=== PATIENT | female | born 1995 | race Caucasian/White ===

== ENCOUNTER 2020-07-31 14:58 | Emergency (ER) | payer MEDICAID, SELFPAY ==
[2020-07-31 14:59] VITALS: BP 102/65; PULSE 81; RESP 16; TEMP 36.6; O2SAT 99; BMI 21.1
--- NOTE | 2020-07-31 15:12 | EX.ED.UPPERE ---
HPI History of Present Illness Chief Complaint: Upper Extremity Injury Informant: patient Occured/Mechanism Mechanism/Context: Yes blunt trauma Onset/Context/Timing Onset: Yesterday Context: Sudden Onset Quality of Pain: Dull, Aching and Throbbing Location: Distal left index finger Current Severity: Mild Maximum Severity: Moderate Worsened by: Movement Relieved by: Nothing Associated Symptoms Associated Symptoms: Negative for Parasthesia, Weakness and Loss of Funtion Narrative Narrative: Patient is a 24-year-old [id number] female who presents with crush injury to her left index finger. Was slammed by car door. She presents because of pain to the distal left index finger. She is able to extend and flex the finger. She denies paresthesia, anesthesia motors. Tetanus shot was 5 to 10 years ago. She has no antibiotic allergies. Tetanus Immunization: 5-10 years Prior similar symptoms: No Recent Illness/Hospitalization: No PFSH PFSH no medical history Home Medications NK 07/31/20 [History Last Taken Unknown] Allergy/AdvReac Type Severity Reaction Status Date / Time No Known Allergies Allergy Verified 07/31/20 15:09 no surgical history Social History (Updated 07/31/20 @ 15:[address] Viet Gibson MD) household members: significant other Smoking Status: Never smoker substance use type: does not use ROS ROS ED Constitutional Constitutional ED: Denies chills or frequent falls Integumentary Reports other Details: Swelling, discoloration left index finger. There is a wound on the ulnar side of the left index finger. ; Denies abscess, Abrasions or rash Neurologic Neurologic: Denies paresthesias or weakness Hematologic/Lymphatic Hematologic/Lymphatic: Denies easy bleeding or easy bruising EXAM Physical Exam Const Vital Signs: 07/31/20 14:59 Temperature 97.9 F Temperature Source Temporal Pulse Rate 81 Respiratory Rate 16 Blood Pressure 102/65 Blood Pressure Mean 77 Pulse Ox 99 Oxygen Delivery Method Room Air HEENT normocephalic and atraumatic Eyes PERRL and EOMs intact bilaterally Resp normal respiratory effort Cardio regular rate and regular rhythm Extremity full ROM Left Upper Extremity: hand and digits inspection (There is swelling over the distal phalanx with discoloration/bruising. There is a wound noted on the dorsal ulnar distal side of the left index finger. This is presumably due to partial avulsion of proximal nail.), palpation (There is pain in a patient of the distal phalanx.), neurovascular exam, tendon exam (The extensor indices tendon is intact. The flexor digitorum superficialis and flexor digitorum profundus are intact.) and other (Capillary refill is normal. Sensation is normal.) Neuro oriented x3 and no sensory deficits noted Sensorium / Orientation: alert Motor Exam: strength 5/5 throughout Psych mental status grossly normal Skin Rashes: no rashes Trauma: laceration linear, superficial, motor nerve function intact and sensation intact MDM MDM MDM Narrative Medical decision making narrative: X-ray was obtained to rule out contusion versus fracture. Radiography Diagnostic Testing: Three-view x-ray of the left index finger was obtained. There is no evidence of fracture. The x-ray was interpreted by me at 1535. Discharge Plan Triage Chief Complaint: Upper Extremity Injury ED Provider: Viet Gibson Dx/Rx/DC Orders Clinical Impression: Contusion of left index finger with damage to nail, Superficial laceration of finger Instructions: ED Crush Injury, Hand Prescriptions: No Action NK RF: 0 Primary Care Provider: NOT,DEFINED Referrals: Fili Blanco MD [STAFF PHYSICIAN] - 3-5 Days (Wound check for crush injury to index finger with superficial laceration and nail injury, partial avulsion proximally) NOT,DEFINED [Primary Care Provider] - Disposition Disposition: Home, self care
--- NOTE | 2020-07-31 15:21 | RAD_ITS ---
STUDY: X-RAY - LEFT HAND, ATTENTION INDEX FINGER REASON FOR EXAM: Female, 24 years old. Injury/Pain TECHNIQUE: 3 view(s) of the finger were obtained. COMPARISON: None. FINDINGS: Normal metacarpal head. Normal metacarpophalangeal joint. Normal proximal phalanx. Normal middle phalanx. Nondisplaced fracture at the tuft of the distal phalanx of the index finger. Normal proximal interphalangeal joint. Normal distal interphalangeal joint. Soft tissue swelling. RAD/Finger(s) Min 2 Views IMPRESSION: Nondisplaced fracture of the tuft of the distal phalanx of the index finger with overlying soft tissue swelling. Electronically Signed: Jon Summers MD at 15:45 EDT , Service support ,
--- NOTE | 2020-07-31 16:02 | EX.ED.UPPERE ---
HPI History of Present Illness Chief Complaint: Upper Extremity Injury Informant: patient Onset/Context/Timing Onset: Yesterday Context: Sudden Onset Timing: Continuous Location: Pain due to crush injury, left index finger Current Severity: Mild Maximum Severity: Moderate Worsened by: Use Relieved by: Rest Associated Symptoms Associated Symptoms: Negative for Parasthesia, Weakness and Loss of Funtion Narrative Tetanus Immunization: 5-10 years Prior similar symptoms: No Recent Illness/Hospitalization: No PFSH PFSH no medical history Home Medications NK 07/31/20 [History Last Taken Unknown] Allergy/AdvReac Type Severity Reaction Status Date / Time No Known Allergies Allergy Verified 07/31/20 15:09 no significant family history no surgical history Social History (Updated 07/31/20 @ 15:[address] Viet Gibson MD) household members: significant other Smoking Status: Never smoker substance use type: does not use ROS ROS ED Integumentary Reports other Details: Superficial laceration distal dorsal ulnar side of the left index finger. ; Denies abscess or rash Neurologic Neurologic: Denies paresthesias or weakness Hematologic/Lymphatic Hematologic/Lymphatic: Denies easy bleeding or easy bruising Allergic/Immunologic Allergic/Immunologic ED: Denies urticaria EXAM Physical Exam Const Vital Signs: 07/31/20 14:59 Temperature 97.9 F Temperature Source Temporal Pulse Rate 81 Respiratory Rate 16 Blood Pressure 102/65 Blood Pressure Mean 77 Pulse Ox 99 Oxygen Delivery Method Room Air Positive well nourished and well developed General Appearance ED: well developed and NAD HEENT normocephalic Eyes PERRL and EOMs intact bilaterally Resp normal respiratory effort Cardio regular rate and regular rhythm Extremity full ROM Extremity Narrative: The extensor indices tendon is intact. The flexor digitorum superficialis and flexor digitorum profundus are intact. Cap refill is normal. Sensation is normal. There is no subungual hematoma noted. There is a superficial laceration suspect due to partial avulsion of the proximal portion of the nail. General Extremety ED: Yes other findings General Extremity: other findings Neuro oriented x3, CN's II-XII intact bilaterally and no sensory deficits noted Neuro Narrative: Median, radial and ulnar function intact. Sensorium / Orientation: alert Motor Exam: strength 5/5 throughout Psych mental status grossly normal Skin Skin Narrative: Superficial laceration Lesions: no lesions Rashes: no rashes MDM MDM MDM Narrative Medical decision making narrative: X-ray was obtained to evaluate for fracture versus dislocation versus contusion. On the PA view there appears to be a radiolucent line suggestive of a nondisplaced fracture. Lab Data Attestation: I reviewed the patient's lab results. Radiography Diagnostic Testing: Radiology Impression Finger X-Ray 07/31/20 15:21 IMPRESSION: Nondisplaced fracture of the tuft of the distal phalanx of the index finger with overlying soft tissue swelling. Electronically Signed: Jon Summers MD at 15:45 EDT , Service support , Treatment and Re-Evaluation Comments:: Aluminum splint and wound care Discharge Plan Triage Chief Complaint: Upper Extremity Injury ED Provider: Viet Gibson Dx/Rx/DC Orders Clinical Impression: Contusion of left index finger with damage to nail, Superficial laceration of finger, Closed fracture of tuft of distal phalanx of finger Instructions: ED Crush Injury, Hand Prescriptions: No Action NK RF: 0 Primary Care Provider: Care Physician,No Primary Referrals: Fili Blanco MD [STAFF PHYSICIAN] - 3-5 Days (Wound check for crush injury to index finger with superficial laceration and nail injury, partial avulsion proximally) NOT,DEFINED [NON-STAFF] - Disposition Disposition: Home, self care
== END 2020-07-31 16:10 | disposition home or self-care (01) ==
LOC: ED 15:41
PROVIDERS: Emergency Provider Emergency Medicine
DX: S61.311A Laceration without foreign body of left index finger with damage to nail, initial encounter (principal); S60.122A Contusion of left index finger with damage to nail, initial encounter; W23.0XXA Caught, crushed, jammed, or pinched between moving objects, initial encounter; Y93.9 Activity, unspecified; Y92.9 Unspecified place or not applicable; Y99.9 Unspecified external cause status
CPT/HCPCS: 73140; 99283